=== PATIENT | female | born 1945 | race Caucasian/White ===

== ENCOUNTER 2017-10-15 01:48 | Inpatient (IN) ==
[2017-10-15] MEDS ORDERED: LASIX IVP ONE ×6 (02:00→16:00)
--- NOTE | 2017-10-15 02:07 | DR.GENAD ---
HPI - Complaint/Symptoms Chief Complaint Doctors Comments: Patient is complaining of SOB with problems breathing all day. states she went to dialysis and did not have any problems. she denies chest pain, nausea, vomiting, fever or chills. Patient with O2sat 76 while in the waiting area. Patient states she do not have any oxygen at home. she denies swelling of her hands or feet. states she has been staying on her water restriction and was under her weighy on yesterday. - Nurses notes reviewed Nurses Notes Review: Yes - Source History Provided: Patient - Mode of Arrival Mode of Arrival: Wheelchair - Timing Came on: Gradually - Duration Duration: Constant How lon Duration: Days - Location Location: SOB and problems breathing - Severity Severity: Moderate - Modifying Factors Worsens:: movement Improves:: nothing ROS - Review of Systems Constitutional: No Symptoms Reported, Weakness, Loss of Appetite Eyes: No Symptoms Reported. negative: See HPI, Eye Pain, Blurred Vision, Tearing, Discharge, Photophobia, Diplopia, Other ENTM: No Symptoms Reported Respiratoy: No Symptoms Reported, Non-Productive Cough, Short of Breath. negative: See HPI, Productive Cough, Moist Cough, Dry Cough, Hacking Cough, Barking Cough, Brassy Cough, Orthopnea, Stridor, Wheezing, Hemoptysis, Other Cardiovascular: No Symptoms Reported, Edema (2+). negative: See HPI, Chest Pain , Palpitations, Syncope, Cyanosis, Skin Mottling, Other Gastrointestinal/Abdominal: No Symptoms Reported. negative: See HPI, Abdominal Pain, Constipation, Diarrhea, Nausea, Vomiting, Food Intolerance, Other Genitourinary: No Symptoms Reported Neurological: No Symptoms Reported. negative: See HPI, Anxiety, Depressed, Emotional Problems, Headache, Numbness, Paresthesia, Pre-existing Deficit, Seizure, Tingling, Tremors, Weakness, Dizziness, Problems Walking, Speech Problem, Other Musculoskeletal: No Symptoms Reported Integumentary: No Symptoms Reported Hematologic/Lymphatic: No Symptoms Reported Endocrine: No Symptoms Reported, Decreased Appetite. negative: See HPI, Excessive Sweating, Flushing, Intolerance to Cold, Intolerance to Heat, Increased Hunger, Increased Thirst, Increased Urine, Unexplained Weight Gain, Unexplained Weight Loss, Failure to Thrive, Other Psychiatric: No Symptoms Reported PE - General Limitations: No Limitations General Appearance: Alert, In No Apparent Distress, In Distress (moderate) - Head Head Exam: Normal Inspection, Atraumatic, Normocephalic - Eyes Eye exam: Normal Appearance, PERRL, EOMI. negative: Scleral Icterus, Conjunctival Injection, Nystagmus, Miosis, Mydrasis, Periorbital Swelling, Periorbital Tenderness, Other - ENT ENT Exam: Normal Exam, Normal Oropharynx, Normal External Ear Exam, Mucous Membranes Moist, TM's Normal Bilaterally External Ear Exam: Normal External Inspection TM/Canal Exam: Bilateral Normal Nose Exam: Normal Nose Exam Mouth Exam: Normal Inspection. negative: Drooling, Trismus, Lip Swelling, Tongue Elevation, Tongue Swelling, Laceration, Other Throat Exam: Normal Inspection, Tonsillar Erythema, Tonsillomegaly. negative: Tonsillar Exudate, R Peritonsillar Mass, L Peritonsillar Mass, Muffled Voice, Other - Neck Neck Exam: Normal Inspection, Full ROM, Trachea Midline. negative: Tenderness, Meningismus, Lymphadenopathy, Thyromegaly, Other - Chest Chest Inspection: Normal Inspection, Symmetric Chest Wall Rise - Respiratory Respiratory Exam: Normal Lung Sounds Bilat, Accessory Muscle Use, Chest Wall Tenderness, Prolonged Expiratory Phase Respiratory Exam: Bilateral Rhonchi, Bilateral Decreased Breath Sounds - Cardiovascular Cardiovascular Exam: Regular Rate, Normal Rhythm, Normal Heart Sounds, Systolic Murmur - Abdominal Exam Abdominal Exam: Normal Inspection, Normal Bowel Sounds, Soft Abdominal Tenderness: negative: RUQ, RLQ, LUQ, LLQ, Epigastrium, Suprapubic, Diffuse, Mild, Moderate, Severe, Other - Extremities Extremities Exam: Normal Inspection, Full ROM, Normal Capillary Refill, Joint Swelling - Back Back Exam: Normal Inspection, Full ROM. negative: Tenderness, (R) CVA Tenderness, (L) CVA Tenderness, Muscle Spasm, Paraspinal Tenderness, Vertebral Tenderness, Rashes, (R) Sciatic Notch Tenderness, (L) Sciatic Notch Tendern, (R ) Straight Leg Raise, (L) Straight Leg Raise, Other - Neurologic Neurological Exam: Alert, Oriented X3, CN II-XII Intact, Normal Gait, Reflexes Normal - Psychiatric Psychiatric Exam: Normal Affect, Normal Mood - Skin Skin Exam: Warm, Dry, Intact, Normal Color - Vital Signs Vitals: Pulse Rate [Right] 55 Pulse Rate 68 Respiratory Rate 13 Blood Pressure [Right Arm] 167/70 Blood Pressure 169/72 O2 Sat by Pulse Oximetry 92 ROR - Labs Reviewed Laboratory Results Reviewed?: Yes (All labs and x-ray results reviewed and discussed with patient) Result Diagrams: 10/15/17 02:11 10/15/17 02:11 - XRAY XRAY Interpreted by: Radiologist (CXR: Cardiomegaly, pulmonary edema and right lower lung opacity. Underlying pneumonia possible vs CHF.) - Labs Reviewed Laboratory: WBC 11.6 X10^3/uL (3.6-10.0) H 10/15/17 02:11 RBC 2.66 X10^6/uL (3.5-5.4) L 10/15/17 02:11 Hgb 8.3 g/dL (12.0-16.0) L 10/15/17 02:11 Hct 24.3 % (36.0-47.0) L 10/15/17 02:11 MCV 91.5 fL (80.0-100.0) 10/15/17 02:11 MCH 31.2 pg (27.0-34.0) 10/15/17 02:11 MCHC 34.1 g/dL (33.0-35.0) 10/15/17 02:11 RDW 16.1 % (11.6-16.5) 10/15/17 02:11 Plt Count 206 X10^3/uL (150.0-450.0) 10/15/17 02:11 MPV 9.1 fL (7.4-11.0) 10/15/17 02:11 Neut % (Auto) 80.4 % (42.0-75.0) H 10/15/17 02:11 Lymph % (Auto) 12.7 % (21.0-51.0) L 10/15/17 02:11 [place] % (Auto) 4.9 % (0.0-13.0) 10/15/17 02:11 Eos % (Auto) 1.2 % (0.9-2.9) 10/15/17 02:11 Baso % (Auto) 0.8 % (0.2-1.0) 10/15/17 02:11 Neut # (Auto) 9.4 x10^3/uL (2.2-4.8) H 10/15/17 02:11 Lymph # (Auto) 1.5 X10^3/uL (1.3-2.9) 10/15/17 02:11 [place] # (Auto) 0.6 x10^3/uL (0.3-0.8) 10/15/17 02:11 Eos # (Auto) 0.1 x10^3/uL (0.0-0.2) 10/15/17 02:11 Baso # (Auto) 0.1 X10^3/uL (0.0-0.1) 10/15/17 02:11 Absolute Nucleated RBC 0.0 /100WBC 10/15/17 02:11 INR Target Range - 10/15/17 02:11 INR 1.34 (0.8-1.3) H 10/15/17 02:11 APTT 42.8 SECONDS (22.9-36.5) H 10/15/17 02:11 PTT Comment - 10/15/17 02:11 Sodium 136 mmol/L (136-145) 10/15/17 02:11 Corrected Sodium 140 mmol/L (136-145) 10/15/17 02:11 Potassium 4.0 mmol/L (3.5-5.1) 10/15/17 02:11 Chloride 96 mmol/L (98-107) L 10/15/17 02:11 Carbon Dioxide 30.6 mmol/L (21-32) 10/15/17 02:11 BUN 42 mg/dL (7-18) H 10/15/17 02:11 Creatinine 3.58 mg/dL (0.55-1.02) H 10/15/17 02:11 Est GFR (MDRD) Af Amer 16 (>60) L 10/15/17 02:11 Est GFR (MDRD) Non-Af 13 (>60) L 10/15/17 02:11 Glucose 251 mg/dL (65-99) H 10/15/17 02:11 Calcium 8.6 mg/dL (8.5-10.1) 10/15/17 02:11 Corrected Calcium TNP 10/15/17 02:11 Magnesium 1.7 mg/dL (1.7-2.9) 10/15/17 02:11 Total Bilirubin 0.90 mg/dL (0.2-1.0) 10/15/17 02:11 AST 28 Units/L (15-37) 10/15/17 02:11 ALT 16 Units/L (12-78) 10/15/17 02:11 Alkaline Phosphatase 78 Units/L (46-116) 10/15/17 02:11 Creatine Kinase 70 Units/L (26-192) 10/15/17 02:11 CK-MB (CK-2) < 1.0 ng/mL (0-4.0) 10/15/17 02:11 CK/CKMB % Calc 1.4 % (<4) 10/15/17 02:11 Troponin I < 0.02 ng/mL (0-1.5) 10/15/17 02:11 Total Protein 7.5 g/dL (6.4-8.2) 10/15/17 02:11 Albumin 3.4 g/dL (3.4-5.0) 10/15/17 02:11 Globulin 4.1 g/dL (2.5-4.5) 10/15/17 02:11 Albumin/Globulin Ratio 0.8 Ratio (1.1-2.1) L 10/15/17 02:11 Specimen Type Catherized urine 10/15/17 02:27 Urine Color Yellow (YELLOW) 10/15/17 02:27 Urine Appearance Slightly hazy (CLEAR) 10/15/17 02:27 Urine pH 7.0 (5.0 - 8.0) 10/15/17 02:27 Ur Specific [place] 1.010 (1.000-1.030) 10/15/17 02:27 Urine Protein 3+ (NEGATIVE) 10/15/17 02:27 Urine Glucose (UA) Negative (NEGATIVE) 10/15/17 02:27 Urine Ketones Negative (NEGATIVE) 10/15/17 02:27 Urine Occult Blood 1+ (NEGATIVE) 10/15/17 02:27 Urine Nitrite Negative (NEGATIVE) 10/15/17 02:27 Urine Bilirubin Negative (NEGATIVE) 10/15/17 02:27 Urine Urobilinogen Normal (NORMAL) 10/15/17 02:27 Ur Leukocyte Esterase 3+ (NEGATIVE) 10/15/17 02:27 Urine RBC 3-5 /HPF (NONE SEEN) 10/15/17 02:27 Urine WBC Tntc /HPF (NONE SEEN) 09/02/18 02:27 Ur Squamous Epith Cells Rare /HPF (NEGATIVE) 10/15/17 02:27 Amorphous Sediment Trace /HPF (NEGATIVE) 10/15/17 02:27 Urine Bacteria Negative /HPF (NEGATIVE) 10/15/17 02:27 Ur Culture Indicated? No/not indicated 10/15/17 02:27 - Diagnosis Discharge Problem: Pulmonary infiltrate in right lung on chest x-ray, Hypoxemia, Congestive heart failure, Diabetes mellitus, Anemia, End stage kidney disease - Discharge Plan Disposition: ADMITTED INPATIENT Condition: Stable - Follow ups/Referrals Follow ups/Referrals: ALBIN SALMON [Primary Care Provider] - 3 days - Instructions
[2017-10-15 02:09] VITALS: BMI 26.2
[2017-10-15 02:19] LABS: BASOPHILS # (AUTO) 0.1 X10^3/uL (0.0-0.1); BASOPHILS % (AUTO) 0.8 % (0.2-1.0); EOSINOPHILS # (AUTO) 0.1 x10^3/uL (0.0-0.2); EOSINOPHILS % (AUTO) 1.2 % (0.9-2.9); HEMATOCRIT 24.3 % (36.0-47.0); HEMOGLOBIN 8.3 g/dL (12.0-16.0); LYMPHOCYTES # (AUTO) 1.5 X10^3/uL (1.3-2.9); LYMPHOCYTES % (AUTO) 12.7 % (21.0-51.0); MEAN CORPUSCULAR HEMOGLOBIN 31.2 pg (27.0-34.0); MEAN CORPUSCULAR HGB CONC 34.1 g/dL (33.0-35.0); MEAN CORPUSCULAR VOLUME 91.5 fL (80.0-100.0); MEAN PLATELET VOLUME 9.1 fL (7.4-11.0); MONOCYTES # (AUTO) 0.6 x10^3/uL (0.3-0.8); MONOCYTES % (AUTO) 4.9 % (0.0-13.0); NEUTROPHILS # (AUTO) 9.4 x10^3/uL (2.2-4.8); NEUTROPHILS % (AUTO) 80.4 % (42.0-75.0); PLATELET COUNT 206 X10^3/uL (150.0-450.0); RED BLOOD COUNT 2.66 X10^6/uL (3.5-5.4); RED CELL DISTRIBUTION WIDTH 16.1 % (11.6-16.5); WHITE BLOOD COUNT 11.6 X10^3/uL (3.6-10.0)
[2017-10-15 02:37] LABS: BLOOD UREA NITROGEN 42 mg/dL (7-18); CALCIUM 8.6 mg/dL (8.5-10.1); CARBON DIOXIDE 30.6 mmol/L (21-32); CHLORIDE 96 mmol/L (98-107); COR NA(FOR HYPERGLY) 140 mmol/L (136-145); CREATININE 3.58 mg/dL (0.55-1.02); SODIUM 136 mmol/L (136-145); TROPONIN I < 0.02 ng/mL (0-1.5); eGFR NON BLACK RACES 13 (>60)
[2017-10-15 02:41] LABS: ALANINE AMINOTRANSFERASE 16 Units/L (12-78); ALBUMIN 3.4 g/dL (3.4-5.0); ALKALINE PHOSPHATASE 78 Units/L (46-116); ASPARTATE AMINO TRANSFERASE 28 Units/L (15-37); CKMB % 1.4 % (<4); CREATINE KINASE 70 Units/L (26-192); CREATINE KINASE MB < 1.0 ng/mL (0-4.0); MAGNESIUM 1.7 mg/dL (1.7-2.9); TOTAL PROTEIN 7.5 g/dL (6.4-8.2)
[2017-10-15 02:44] LABS: BILIRUBIN,URINE NEGATIVE (NEGATIVE); BLOOD/HEMOGLOBIN,URINE 1+ (NEGATIVE); GLUCOSE, URINE NEGATIVE (NEGATIVE); KETONES,URINE NEGATIVE (NEGATIVE); LEUKOCYTE ESTERASE ,URINE 3+ (NEGATIVE); NITRITES,URINE NEGATIVE (NEGATIVE); PROTEIN,URINE 3+ (NEGATIVE); UROBILINOGEN,URINE NORMAL (NORMAL)
[2017-10-15 02:47] LABS: APPEARANCE,URINE SLIGHTLY HAZY (CLEAR); COLOR,URINE YELLOW (YELLOW)
[2017-10-15 02:48] LABS: AMORPHOUS SEDIMENT,UR TRACE /HPF (NEGATIVE); BACTERIA,URINE NEGATIVE /HPF (NEGATIVE); SQUAMOUS EPITHELIAL CELL,UR RARE /HPF (NEGATIVE)
--- NOTE | 2017-10-15 04:28 | RAD ---
Chest AP portable Indication: Chest pain Findings: There is no pneumothorax or effusion. There is cardiomegaly and pulmonary edema with probab le left effusion. Developing right lung infiltrate is possible. Overlapping leads obscure detail Impression: Cardiomegaly, pulmonary edema and right lower lung opacity. Underlying pneumonia possible CHF favored. Follow-up to resolution. Reported By:
[2017-10-15] MEDS ORDERED: NS 100 ML IV + SPIKE MINIBAG* 100 ML IV ONE (04:37)
[2017-10-15] MEDS ORDERED: ROCEPHIN VIAL 1 GRAM ONE (04:38)
[2017-10-15] MEDS ORDERED: NS 100 ML IV 100 ML IV ONE ×2 (04:39→19:11)
[2017-10-15] MEDS ORDERED: ROCEPHIN VIAL 1 GRAM 1 G in NS 100 ML IV + SPIKE MINIBAG* 100 ML IV SCH (04:45)
[2017-10-15] MEDS ORDERED: HumuLIN R SC PRN (06:01)
[2017-10-15] MEDS ORDERED: SALINE 3% 15 ML NEB TX ONE (06:21)
[2017-10-15] MEDS ORDERED: DUONEB 0.5 MG/3 MG NEB ONE (06:30)
[2017-10-15] MEDS ORDERED: SALINE 3% 15 ML NEB TX NEB ONE (06:38)
[2017-10-15] MEDS: DUONEB 0.5 MG/3 MG NEB SCH ×4 (08:58→21:40)
[2017-10-15 10:20] LABS: ABG BASE EXCESS 8.1 mmol/L (-2.0-2.0); ABG HCO3 32.8 mmol/L (22-26)
[2017-10-15] MEDS ORDERED: XANAX PO PRN (13:20)
--- NOTE | 2017-10-15 13:24 | DR.H&P ---
H&P - History & Physical for Day of: H&P Date: 10/15/17 - Chief Complaint Chief Complaint: SOB - History of Present Illness History of Present Illness: 72 W[facility] ER ADMISSION WITH CO INCREASED SOB. PT HAS HX OF CHRONIC RENAL FAILURE ON DIALYSIS IN [place] ON MW. PT STATES SHE HAD DIALYSIS ON MONDAY W/O COMPLICATIONS. PT CO WORSENING SOB. PT EVALUATED IN ER, WITH XRAY REVEALED PNEUMONIA.PT HAD PMH OF ESRD, HTN, OA, COPD, CHF. ADMITTED TO ICU FOR TREATMENT OF ACUTE RESP DISTRESS AND PNEUMONIA. - Past Medical History Past Medical History: Anxiety, Arthritis, CHF, Diabetes, Hypertension, Renal Disease - Past Surgical History Surgical History: , Cholecystectomy - Family History Family Medical History: Diabetes Mellitus, Cancer, NM, Sudden Cardiac , Hypertension - Social History Does patient currently use any type of tobacco product: No Have you used tobacco products in the last 12 months: No Type of Tobacco Use: None Does any household member use tobacco: No Alcohol Use: None Drug Use: None - Medications Home Medications: No Known Drug Allergies Allergy (Verified 10/15/17 01:50) CONTINUE taking the following medications alprazolam 1 mg PO HS PRN 10/15/17 [History] amlodipine 10 mg PO DAILY 10/15/17 [History] atorvastatin 40 mg PO DAILY 10/15/17 [History] carvedilol [Coreg] 12.5 mg PO BID 10/15/17 [History] citalopram 20 mg PO DAILY 10/15/17 [History] furosemide 40 mg PO BID 10/15/17 [History] hydralazine 100 mg PO BID 10/15/17 [History] metolazone 2.5 mg PO DAILY 10/15/17 [History] warfarin 3 mg PO QDAY 10/15/17 [History] - Review of Systems Constitutional: Weakness Eyes: No Symptoms Reported ENT: No Symptoms Reported Respiratory: Shortness of Breath Cardiovascular: No Symptoms Reported. denies: Edema Gastrointestinal: Nausea Genitourinary: No Symptoms Reported Musculoskeletal: No Symptoms Reported Skin: No Symptoms Reported Neurological: Weakness - Physical Exam Vital Signs: Temperature 97.8 F Pulse Rate [Apical] 63 Pulse Rate [Right] 68 Pulse Rate 68 Respiratory Rate 22 Blood Pressure [Right Arm] 172/76 Blood Pressure 149/63 O2 Sat by Pulse Oximetry 97 Oriented: Normal Eyes: Normal Ear: Normal Nose: Normal Throat: Normal Respiratory: Wheezes Throughout (MILD DIFFUSE EXP WHEEZES), RLL Diminished, LLL Diminished Cardiovascular: Tachycardia. negative: Edema : Normal Auscultation: Bowel Sounds: Normal Palpation: Normal Tenderness: Normal Skin: Decreased [place], Bruising (LLE) Musculoskeletal: Normal Psychiatric: Normal Affect: Anxious Speech Pattern: Clear, Appropriate - Assessment/Plan (1) Pulmonary infiltrate in right lung on chest x-ray Status: Acute Plan: ADMIT, CXR ON ADMISSION IN ER. IV ATBX, RESP THERAPY SUPPLEMENTAL O2. JET NEBS, SPUTUM AND BLOOD CULTURES. VERIFY HOME MEDS, RESUME BB, LASIX. STRICT I & OS, VERIFY DIAYLSIS LOCATION AND ARTILLERY OR [employer]. EKG ON ADMISSION, CONTINUOUS CARDIAC MONITORING (2) Congestive heart failure Status: Acute (3) Hypoxemia Status: Acute (4) Diabetes mellitus Status: Acute (5) Anemia Status: Acute (6) End stage kidney disease Status: Acute - Allergies Allergies/Adverse Reactions: Allergies Allergy/AdvReac Type Severity Reaction Status Date / Time No Known Drug Allergies Allergy Verified 10/15/17 01:50
[2017-10-15] MEDS ORDERED: COUMADIN TAB 3 MG PO SCH (14:00)
[2017-10-15] MEDS: LASIX IVP SCH (16:00)
[2017-10-15] MEDS ORDERED: ZITHROMAX INJ 500 MG VIAL 500 MG in NS 250 ML IV 250 ML IV SCH (19:02)
[2017-10-15] MEDS ORDERED: XANAX PO ONE (19:03)
[2017-10-15] MEDS ORDERED: NS 250 ML IV 250 ML IV ONE ×2 (19:07→19:11)
[2017-10-15] MEDS ORDERED: ZITHROMAX INJ 500 MG VIAL IV ONE (19:11)
[2017-10-15 20:59] LABS: ABG BASE EXCESS 2.5 mmol/L (-2.0-2.0)
[2017-10-15 21:00] LABS: ABG HCO3 31.4 mmol/L (22-26)
[2017-10-15] MEDS ORDERED: APRESOLINE TAB 25 MG PO SCH (21:00)
[2017-10-15] MEDS ORDERED: COREG TAB 12.5 MG PO SCH (21:00)
[2017-10-15] MEDS ORDERED: PATIENT'S HOME MEDICATION (Hydralazine [Hydralazine] 100 MG) PO SCH (21:00)
[2017-10-15] MEDS ORDERED: LASIX PO SCH (21:00)
[2017-10-15 22:21] LABS: ABG ALLEN TEST POS; ABG HCO3 31.4 mmol/L (22-26); FRACTIONATED INSPIRED OXYGEN 40
[2017-10-16] MEDS: LASIX IVP SCH (00:39)
[2017-10-16 01:17] VITALS: BP 154/68
[2017-10-16] MEDS ORDERED: ZAROXOYLN PO SCH (09:00)
[2017-10-16] MEDS ORDERED: ROCEPHIN VIAL 1 GRAM 1 G in NS 100 ML IV + SPIKE MINIBAG* 100 ML IV SCH (09:00)
[2017-10-16] MEDS ORDERED: CELEXA PO SCH (09:00)
[2017-10-16] MEDS ORDERED: NORVASC TAB 10 MG PO SCH (09:00)
[2017-10-16] MEDS ORDERED: ROCEPHIN 1 GRAM IV PREMIX 1 G/50 ML IV.SOLN. IV SCH (09:00)
[2017-10-16] MEDS ORDERED: LIPITOR TAB 40 MG PO SCH (09:00)
== END 2017-10-16 00:50 | disposition short-term general hospital (02) | DRG 193 ==
LOC: ER 01:48 → ICU 06:05
PROVIDERS: ADMIT Internal Medicine; ATTEND Internal Medicine
DX: N18.6 End stage renal disease; M15.8 Other polyosteoarthritis; Z79.01 Long term (current) use of anticoagulants; Z99.2 Dependence on renal dialysis; R06.02 Shortness of breath; I50.9 Heart failure, unspecified; E11.65 Type 2 diabetes mellitus with hyperglycemia; J18.8 Other pneumonia, unspecified organism; R94.31 Abnormal electrocardiogram [ECG] [EKG]; K21.9 Gastro-esophageal reflux disease without esophagitis; R09.02 Hypoxemia; I20.8 Other forms of angina pectoris
CPT/HCPCS: 36415; 36600; 51702; 71010; 71045; 80053; 81001; 82550; 82553; 82803; 83735; 84484; 85025; 85610; 85730; 87040; 93005; 93010; 94640; 94660; 96365; 96374; 96375; 99221; 99284; 99285; A4222; A4618; A7030; J0456; J0696; J1815; J1940; J7050; J7620